=== PATIENT | female | born 1985 | race American Indian/Alaskan Native ===

== ENCOUNTER 2018-01-26 13:01 | Emergency (ER) | payer SELFPAY ==
[2018-01-26 13:19] VITALS: BP 126/79
--- NOTE | 2018-01-26 15:52 | Emergency Department Report ---
Eye Injury/Foreign Body - HPI Eye Symptoms: Eye Pain: Yes (right eye), Blurred Vision: No, Eye Redness: Yes ( right eye), Grinding/Hammering Metal: No, Used Eye Protection: No, Contact Lens Use: No, Recalls Injury: No, Photophobia: No Other History: This is a 32-year-old -[place] female presents with right crusting and drainage for 1 day. Patient reports waking up with a crusted right eye with yellow drainage this morning. She is taking aleve with minimal improvement of symptoms. The patient reports feeling discomfort while drinking and cold drinks to right side of face. She is able to eat and swallow without pain. Denies facial swelling, fever, difficulty swallowing, drooling, shortness of breath, chest pain, and visual changes. ED Review of Systems ROS: Stated complaint: FACIAL PAIN & REDNESS Other details as noted in HPI Constitutional: denies: chills, fever Eyes: eye pain (right eye), eye discharge (right eye), other (right sided facial pain) ENT: congestion. denies: ear pain, throat pain Respiratory: denies: cough, shortness of breath, wheezing Cardiovascular: denies: chest pain, palpitations, syncope Gastrointestinal: denies: abdominal pain, nausea, vomiting, diarrhea Neurological: denies: headache, weakness, paresthesias Psychiatric: denies: anxiety, depression ED Past Medical Hx - Past Medical History Previous Medical History?: No - Surgical History Past Surgical History?: Yes Additional Surgical History: metal rods in both legs - Social History Smoking Status: Never Smoker Substance Use Type: None - Medications Home Medications: Home Medications Medication Instructions Recorded Confirmed Last Taken Type Azithromycin(Nf)1% Ophth Soln 50 drops OD DAILY #1 bottle 01/26/18 Unknown Rx [Azasite 1% Ophth Soln] Fluticasone [Flonase] 1 spray NS QDAY #1 bottle 01/26/18 Unknown Rx Eye Injury Exam - Exam General: Vital signs noted. No distress. Alert and acting appropriately. - Visual Acuity Bilateral Eye Exam: Right Injection, Right Mucous Discharge, Both EOMI, Neither Chemosis, Neither Abnormal Pupil, Neither Eye Foreign Body, Neither Lid Foreign Body, Neither Purulent Discharge, Neither Fluorescein Uptake, Neither Fluorescein Uptake (slit lamp), Neither Cell/Flare (slit lamp), Neither Corneal Edema, Neither Photophobia ED Course Vital Signs 01/26/18 13:14 Temperature 98.3 F Pulse Rate 82 Respiratory 18 Rate Blood Pressure 126/79 O2 Sat by Pulse 99 Oximetry ED Medical Decision Making - Medical Decision Making This is a 32 y.o. female that presents with injected right eye with crusting for 1 day. Patient is stable and was examined by me. Vitals normal. Physical assessment susceptible of conjunctivitis on right and upper respiratory infection. Start azithromycin gtts and flonase. Continue supportive care. Upper respiratory infection. Discussed plan with patient and she agreed with plan. Discharged home in stable condition. Follow up with PCP in 24-72 hours. Critical care attestation.: If time is entered above; I have spent that time in minutes in the direct care of this critically ill patient, excluding procedure time. ED Disposition Clinical Impression: Upper respiratory infection Qualifiers: URI type: acute nasopharyngitis (common cold) Qualified Code(s): J00 - Acute nasopharyngitis [common cold] Conjunctivitis Qualifiers: Conjunctivitis type: acute Acute conjunctivitis type: bacterial Laterality: right Qualified Code(s): H10.31 - Unspecified acute conjunctivitis, right eye Disposition: DC-01 TO HOME OR SELFCARE Is pt being admited?: No Does the pt Need Aspirin: No Condition: Stable Instructions: Conjunctivitis (ED), Upper Respiratory Infection (ED) Additional Instructions: Pinkeye is very contagious so please wash hands frequently. Don't share any towels or bedding to prevent spread of infection. Follow up with Primary Care Provider in 24-72 hours. Use cool compress to each eye to decrease swelling. Avoid rubbing or touching eyes, because rubbing eyes can cause worsening symptoms. Take medication as prescribed. Return to ER if swelling don't improve or difficulty breathing after 2 days of medication. Prescriptions: Azithromycin(Nf)1% Ophth Soln [Azasite 1% Ophth Soln] 50 drops OD DAILY #1 bottle Fluticasone [Flonase] 1 spray NS QDAY #1 bottle Referrals: [facility] [Outside] - 3-5 Days [facility] [Outside] - 3-5 Days [facility] [Outside] - 3-5 Days Forms: Work/School Release Form(ED) Time of Disposition: 16:04 Print Language: PASHTO ED ENT EXAM - General Limitations: No Limitations - ENT Ear exam: Positive: normal external inspection Mouth exam: Positive: normal external inspection Teeth exam: Positive: normal inspection Throat exam: Positive: normal inspection - Respiratory Respiratory exam: Positive: normal lung sounds bilaterally. Negative: respiratory distress, wheezes, rales, rhonchi, stridor, accessory muscle use - Cardiovascular Cardiovascular Exam: Positive: regular rate, normal rhythm, normal heart sounds Peripheral pulses: 2+: Radial (R) - GI/Abdominal GI/Abdominal exam: Positive: soft, normal bowel sounds. Negative: distended, tenderness, guarding, rebound, rigid - Neurological Neurological exam: Positive: alert, oriented X3, normal gait - Psychiatric Psychiatric exam: Positive: normal affect, normal mood - Skin Skin exam: Positive: warm, dry, intact, normal color. Negative: rash
== END 2018-01-26 16:18 | disposition home or self-care (01) ==
LOC: ED 13:01
DX: H10.31 Unspecified acute conjunctivitis, right eye (principal); J00 Acute nasopharyngitis [common cold]
CPT/HCPCS: 99282